=== PATIENT | male | born 1950 | race Caucasian/White ===

== ENCOUNTER 2016-09-09 13:08 | Observation (INO) | payer OTHER, MEDICARE ==
[~2016-09-09] VITALS: Ht 185.4 cm; Wt 109.6 kg
[2016-09-09 13:21] VITALS: BP 173/93; PULSE 80; RESP 18; O2SAT 98
[2016-09-09] MEDS ORDERED: FLUT16SP NASAL (13:28)
[2016-09-09] MEDS ORDERED: LISI-567 PO (13:28)
[2016-09-09] MEDS ORDERED: ALLO300T2 PO (13:28)
[2016-09-09] MEDS ORDERED: ATOR80TA77 PO (13:28)
--- NOTE | 2016-09-09 14:34 | ED.REPORT ---
HPI-Neurologic Deficit Date of Service Sep 09, 2016 ED Provider: Sapphire Sandoval MD 66 y/o male with a hx of HTN, hyperlipidemia and asthma presents to the ED via EMS complaining of sudden occipital headache that woke him up at 03:30 this morning. This concerned the pt as he never gets headaches. The pt took his BP and recorded it as 152/100 and later at 180/96. He took Naprosyn, without any relief. He called the EMS after he began experiencing numbness on the left side of his face and in the left arm. He states my hand was functioning but I couldnt feel it. His sx resolved on his way to the ED. His headache went down from 8/10 in severity to 4/10. He denies nausea, vomiting, neck stiffness , chest pain, vision problems, speech problems and facial droop. Nursing Notes Stated Complaint: NEURO SYMPTOMS Chief Complaint: Neuro Symptoms/ Deficits Nursing Notes Reviewed: Yes Allergies: Uncoded Allergies: NKMA (Allergy, Mild, 07/24/03) Scheduled Allopurinol (Allopurinol) 300 Mg Tablet 300 MG PO DAILY Atorvastatin Calcium (Atorvastatin Calcium) 80 Mg Tablet 80 MG PO HS Lisinopril (Lisinopril) 20 Mg Tablet 20 MG PO DAILY Scheduled PRN Fluticasone Propionate (Fluticasone Propionate Nasal) 16 Gm [place].susp 1 SPRAY NASAL prn PRN PRN congstion General Time Seen by Provider: 13:27 Chief Complaint Sudden onset headache Hx Obtained From: Patient Arrived By: Ambulance Sudden in Onset?: Yes Onset Occurred: 9 - 12 hours ago Symptom Duration: 1 - 4 hours Progression Since Onset: Gradually improving Location: : Head Quality: Painful Radiation: : Does not radiate Severity: Current: Pain level 4 out of 10 Severity: Maximum: Pain level 8 out of 10 Recent Healthcare: No recent doctor visit Similar Sx Previous: No Risk Factors NIH Stroke Scale Level of Consciousness: Alert and responsive (0) Ask Month & Age: Both questions right (0) Open/Close Eyes/Hand Butt Maker: Performs both tasks (0) Horizontal EO Movements: None (0) Visual Harman: No visual loss (0) Facial Palsy: Normal symmetry (0) Right Arm Motor Drift (10s): No drift 10 sec (0) Left Arm Motor Drift (10s): No drift 10 sec (0) Right Leg Motor Drift (5s): No drift 5 sec (0) Left Leg Motor Drift (5s): No drift 5 sec (0) Limb Ataxia FNF/Heel-Macdonald: No ataxia (0) Sensation (Arms/Legs/Face): No sensory loss (0) Language Aphasia: No aphasia, normal (0) Dysarthria: No dysarthria, normal (0) Extinction/Inattention: No exctinct/inattent (0) NIHSS Score: 0 Time NIHSS Performed: 13:30 Date NIHSS Performed: Sep 09, 2016 Past Medical History Past Medical History Reports: Asthma, Hyperlipidemia, Hypertension Past Surgical History none reported Smoking History Unknown if Ever Smoker Social History Retired nurse practitioner Ambulatory Status Independent Review of Systems Reports: hypertension Denies: facial droop Cardiovascular: Denies: Chest pain GI: Denies: Nausea, Vomiting Musculoskeletal: Denies: Neck pain (neck stiffness) Neurologic: Reports: Headache, Numbness (left side of the face and left arm, now resolved), Denies: Unable to speak, Vision change Complete sys rev & neg: except as marked. Physical Exam Initial Vital Signs Vital Signs (First) Date Time Temp Pulse Resp B/P Pulse Ox O2 Delivery O2 Flow Rate FiO2 09/09/16 13:21 36.7 80 18 173/93 98 Room Air Initial VS: Reviewed Neck: Supple, Non-tender, Full range of motion Extremities: Vascular intact, Neuro intact, No swelling, No tenderness Skin: Warm, Dry, No cyanosis General/Constitutional: Awake, Alert, No acute distress, Well appearing, Cooperative Head / Eyes: Atraumatic, Normocephalic, PERRL, EOMI Respiratory / Chest: Atraumatic, Breath sounds NL, Breath sounds = bilat, No respiratory distress, No rales, No rhonchi, No wheezing Cardiovascular: Heart rate NL, Regular rhythm, Heart sounds NL, No gallop, No murmurs, No rubs Neurologic: Oriented X3, Speech NL, No motor deficits, No sensory deficits, CN II - XII intact Interpretation & Diagnostics Lab Results Interpretation Result Diagram: 09/09/16 1338 09/09/16 1338 Test 09/09/16 13:38 White Blood Count 7.3th/mm3 (3.8-10.1) Red Blood Count 4.73mil/mm3 (4.40-5.80) Hemoglobin 15.9g/dL (13.8-17.2) Hematocrit 45.7% (41.0-50.0) Mean Corpuscular Volume 96.6fL (81-100) Mean Corpuscular Hemoglobin 33.6pg (27.0-35.0) Mean Corpuscular Hemoglobin Concent 34.8% (32.0-37.0) Red Cell Distribution Width 13.5% (12.3-15.4) Platelet Count 209bil/L (150-400) Neutrophils (%) (Auto) 52.5% (40-74) Lymphocytes (%) (Auto) 33.2% (14-46) Monocytes (%) (Auto) 10.7% (4-12) Eosinophils (%) (Auto) 3.2% (0-5) Basophils (%) (Auto) 0.3% (0-3) Hold Purple Top Tube Received (Received) Prothrombin Time 10.1sec (8.1-12.5) Prothromb Time International Ratio 0.95ratio Activated Partial Thromboplast Time 25.6sec (22.8-33.0) Hold Blue Top Tube Received (Received) Sodium Level 136mEq/L (134-144) Potassium Level 4.3mEq/L (3.5-5.2) Chloride Level 97mEq/L (97-108) Carbon Dioxide Level 22mmol/L (18-29) Blood Urea Nitrogen 20mg/dL (8-27) Creatinine 0.78mg/dL (0.76-1.27) Estimat Glomerular Filtration Rate 106mL/min (>59) Glucose Level 103mg/dL (60-99) Calcium Level 9.2mg/dL (8.5-10.1) Total Bilirubin 0.7mg/dL (0.0-1.2) Aspartate Amino Transf (AST/SGOT) 35U/L (0-50) Alanine Aminotransferase (ALT/SGPT) 37U/L (0-44) Alkaline Phosphatase 62U/L (25-160) Troponin T < 0.010ug/L (0.0-0.011) Total Protein 7.4g/dL (6.4-8.4) Albumin 4.4g/dL (3.4-5.0) Hold [place] Top Tube Received (Received) CT Head Interpretation IMPRESSION: 1. No acute intracranial abnormalities. 2. Cerebral volume loss and chronic microvascular ischemic changes. Dictated by: Nuno Palomo M.D. on 09/09/2016 at 14:27 Approved by: Nuno Palomo M.D. on 09/09/2016 at 14:33 Study: Head CT no contrast Interpretation / Wet Read by: Interpret - Radiologist Re-Eval/Medical Decision Med Decision/Clinical Course Patient's symptoms are in a vascular territory and typical of possible TIA, they have completely resolved by the time of his emergency department evaluation. He was administered an aspirin, and admitted to the hospital for further workup including telemetry, echocardiogram. Re-Evaluation/Progress : Time of Eval: 13:33 Re-Evaluation/Progress Note: Discussed diagnosis and plan to admit. Pt understands and agrees with the plan for admission. All questions addressed. Consultation : Referral / Consult Name: Rico Mauricio MD Consulted With: Hospitalist Call Returned at: 15:30 Quarry Supervisor Dimension Stone: Will see patient, Agrees with eval, Agrees with plan, Accepts admit Counseled Regarding: Diagnosis, Lab results, Need for admission Discharge & Departure Impression: Primary Impression: TIA (transient ischemic attack) Transient cerebral ischemia type: unspecified Qualified Code: G45.9 - Transient cerebral ischemic attack, unspecified Disposition: ADMITTED TO HOSPITAL Discharge Condition All VS Reviewed: Yes Referrals: Aubree Guillaume (PCP) Sharmila Attestation Portions of this note were transcribed by Ravinder Angel. I,, personally performed the history, physical exam and medical decision-making;I reviewed and confirmed the accuracy of the information in the transcribed note. Signed by Sharmila Balderrama. 09/09/16 17:38 copies to: Aubree Guillaume Sarah C MD Sep 09, 2016 14:34 Ravinder Angel Sep 09, 2016 15:06
--- NOTE | 2016-09-09 14:36 | DRSVH ---
PROCEDURE: CT BRAIN WITHOUT CONTRAST ([id number]) INDICATIONS: facial numbness TECHNIQUE: Noncontrast 4.5 mm thick angled axial sections acquired from the foramen magnum to the vertex, with c oronal reformats. COMPARISON: None. FINDINGS: Image quality: Excellent. CSF spaces: Basal cisterns are patent. No extra-axial fluid collections. The ventricles are symmet nicole in size and shape. Brain: No intracranial bleeds or masses. There is mild cerebral volume loss for age, with resultant ventricular and sulcal prominence. There are mild periventricular and deep white matter chronic sma ll vessel ischemic changes. There is intracranial internal carotid artery atherosclerosis. Skull and face: Calvarium and visualized facial bones appear intact, without suspicious lesions. Sinuses: Visualized sinuses and mastoids are clear. IMPRESSION: 1. No acute intracranial abnormalities. 2. Cerebral volume loss and chronic microvascular ischemic changes. Dictated by: Nuno Palomo M.D. on 09/09/2016 at 14:27 Approved by: Nuno Palomo M.D. on 09/09/2016 at 14:33
[2016-09-09 15:03] LABS: BASOPHILS % (AUTO) 0.3 % (0-3); EOSINOPHILS % (AUTO) 3.2 % (0-5); MONOCYTES % (AUTO) 10.7 % (4-12); Mean Corpuscular Hemoglobin 33.6 pg (27.0-35.0); Mean Corpuscular Volume 96.6 fL (81-100); NEUTROPHILS % (AUTO) 52.5 % (40-74); Platelet Count 209 bil/L (150-400)
[2016-09-09 15:09] LABS: INR 0.95 ratio
[2016-09-09 15:22] LABS: TROPONIN T < 0.010 ug/L (0.0-0.011)
[2016-09-09 15:30] VITALS: BP 175/96; PULSE 84; RESP 20; O2SAT 96
--- NOTE | 2016-09-09 15:45 | DRSVH ---
PROCEDURE: X-RAY CHEST ONE VIEW, PORTABLE ([id number]) INDICATIONS: TIA TECHNIQUE: One view of the chest was acquired. COMPARISON: None. FINDINGS: Surgical changes and devices: None. Lungs and pleura: No pleural effusions or pneumothorax. Lungs are clear. Mediastinum: Mediastinal contours appear normal. Heart size is normal. Bones and chest wall: No suspicious bony lesions. Overlying soft tissues appear unremarkable. IMPRESSION: No radiographic evidence of acute cardiopulmonary pathology. Dictated by: Jhoan Olsen M.D. on 09/09/2016 at 15:42 Approved by: Jhoan Olsen M.D. on 09/09/2016 at 15:42
[2016-09-09] MEDS ORDERED: Alum-Mag Hydrox-Simeth 30 mL Suspension PO PRN (16:30)
[2016-09-09] MEDS ORDERED: Polyethylene Glycol (PEG) 17 Gm Powder PO PRN (16:30)
[2016-09-09] MEDS ORDERED: Ondansetron 2 mg/mL 2 mL Inj IVPUSH PRN (16:30)
[2016-09-09] MEDS ORDERED: Fluticasone 0.05% 15 Spray/2 Gm 16 Gm Nasal Spray NASAL PRN (16:30)
--- NOTE | 2016-09-09 16:43 | PCM.HPMED ---
Subjective Date of Service Sep 09, 2016 Primary Provider: Admitting Physician: Rico Mauricio MD Primary Care Physician: Aubree Guillaume Attending Physician: Rico Mauricio MD History of Present Illness: As taken from patient, ER notes: 66 y/o male with a hx of HTN, hyperlipidemia and asthma presents to the ED via EMS complaining of sudden occipital headache that woke him up at 03:30 this morning. This concerned the pt as he never gets headaches. The pt took his BP and recorded it as 152/100 and later at 180/96. He took Naprosyn, without any relief. He called the EMS after he began experiencing numbness on the left side of his face and in the left arm. He states my hand was functioning but I couldnt feel it. His sx resolved on his way to the ED. His headache went down from 8/10 in severity to 4/10. He denies nausea, vomiting, neck stiffness, chest pain, vision problems, speech problems and facial droop. Patient added that he went for a physical to his PCP a month ago , and at that time his bp was ok. He usually checks blood pressure at home regularly, and its usually around 140s/80s. 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 He does complain of low grade fever since last 3-4 weeks. Allergies Uncoded Allergies: NKMA (Allergy, Mild, 07/24/03) Constitutional: No: Chills, Fever, Malaise, Other, Sweats, Weakness Eyes: Denies: Blurred Vision, Conjunctive Inflammation, Double Vision, Eyelid Inflammation, Other, Pain, Pigmentosa, Redness, Retinitis, Vision Changes Cardiovascular: Denies: Chest Pain, Edema, Lt Headedness, Orthopnea, Other, Palpitations, Paroxysmal Noc. Dyspnea Gastrointestinal: Denies: Abdominal Pain, Change in Appetite, Constipation, Diarrhea, Heartburn, Hematochezia, Melena, Nausea, Other, Use of Laxatives, Vomiting Genitourinary: Denies: Anuria, Change in Frequency, Dysuria, Hematuria, Incontinence, Nocturia, Other, Retention Musculoskeletal: Denies: Back Pain, Deformity, Limitation of Function, Neck Pain, Other, Redness, Shoulder Pain, Swelling Skin: Denies: Bruising, Dry or Flakiness, Jaundice, Lesions, Other, Rash, Scars , Ulcers Neurological: Reports: Other (as per HPI) Psychologic: Denies: Agitation, Disorientation, Excitation, Giddiness, Hostile , Insomnia, Instability, Brigida, Nervousness, Night Terrors, Other, Perseveration , Phobia, Sexual Disturbances Endocrine: Denies: Change in Appitite, Diaphoresis, Intolerent to Heat/Cold, Polydipsea, Polyuria PMH HTN Hyperlipidemia Seasonal Asthma Surgical History None Family History Father : Alzheimer's, Afib, prostate cancer Mother : Strokes Social History Hx Alcohol Use: Yes (daily 2-4 ) Alcoholic Drinks Per Day: socially Hx Substance Use: No Hx Tobacco Use: No Smoking Status: Unknown if Ever Smoker Exam Vital Signs Vital Sign - Last Date Time Temp Pulse Resp B/P Pulse Ox O2 Delivery O2 Flow Rate FiO2 09/09/16 15:30 36.2 84 20 175/96 96 Room Air Exam Neck: Supple, Non-tender, Full range of motion Extremities: Vascular intact, Neuro intact, No swelling, No tenderness Skin: Warm, Dry, No cyanosis General/Constitutional: Awake, Alert, No acute distress, Well appearing, Cooperative Head / Eyes: Atraumatic, Normocephalic, PERRL, EOMI Respiratory / Chest: Atraumatic, Breath sounds NL, Breath sounds = bilat, No respiratory distress, No rales, No rhonchi, No wheezing Cardiovascular: Heart rate NL, Regular rhythm, Heart sounds NL, No gallop, No murmurs, No rubs Neurologic: Oriented X3, Speech NL, No motor deficits, No sensory deficits, CN II - XII intact Lab and Diagnostics Result Diagram: 09/09/16 1338 09/09/16 1338 X-Rays, CTs and MRIs Head CT MPRESSION: 1. No acute intracranial abnormalities. 2. Cerebral volume loss and chronic microvascular ischemic changes. Assessment & Plan 66 yo male with pmh of HTN, Hyperlipidemia and seasonal asthma, being admitted for sudden onset of headache, and concerns for TIA. > TIA, at home, working up the cause - CT negative for any acute intracranial processes - MRI , Echo , Carotid dopplers pending - Tele monitoring - patient got Aspirin in ER , on anti cholestrol medication at home - BP - 175/96 in ER, permissive bp - labetalol prn if bp > 180/100 - lipid panel, Hba1c - Swallow eval > HTN - BP high in ER, however considering no signs of Intracranial bleed, permissive bp for now - labetolol prin if bp > 180/100 - will continue lisinopril > Hyperlipidemia - continue home med > Seasonal asthma - asymptomatic at this point DVT prophylaxis : SCDs FEN: Cardiac diet once bedside swallow eval done Dispo: Patient will be admitted for observation, los likely <2 days. Resuscitation Status: CPR: Attempt Resuscitation Time spent 45 mins Rico Mauricio MD Sep 09, 2016 16:34
[2016-09-09] MEDS ORDERED: Butalbital-Acet-Caffeine Tablet PO PRN (16:50)
--- NOTE | 2016-09-09 16:51 | NUR ---
Evaluation completed. Please go to "Notes" then click on "Assessments and Notes" (bottom left corner of screen). Then select appropriate discipline tab on top of screen.
[2016-09-09 17:20] VITALS: BP 150/82; PULSE 83; RESP 19; O2SAT 98
[2016-09-09 17:43] VITALS: PULSE 100
--- NOTE | 2016-09-09 18:32 | NUR ---
Admit Pt admitted to [facility] room 1016 for observation for TIA. Pt transferred from ED by alpesh, transferred independently into room bed. Pt is alert oriented, ARMSTRONG, with strong steady gait. Cooperating with all cares. Pt placed on telemetry, lunchroom monitor notified.
[2016-09-09 20:50] VITALS: BP 149/87; PULSE 85; RESP 18; O2SAT 97
[2016-09-10 01:05] VITALS: BP 131/86; PULSE 75; RESP 16; O2SAT 98
--- NOTE | 2016-09-10 02:44 | NUR ---
Activity Patient denies pain at this time. No lingering deficit from TIA noted. ambulating independently, sleeping throughout shift. will continue to monitor.
[2016-09-10 05:20] VITALS: BP 169/100; PULSE 83; RESP 18; O2SAT 98
[2016-09-10 05:46] VITALS: PULSE 68
--- NOTE | 2016-09-10 07:55 | PCM.PNMED ---
Subjective Date of Service Sep 10, 2016 Subjective Patient seen and examined today. Complains of mild headache. When asked if would like to take medication for it, denied, said he wants to wait till work up is done and then take something. Vitals stable. Exam Vital Signs Vital Sign - Last Date Time Temp Pulse Resp B/P Pulse Ox O2 Delivery O2 Flow Rate FiO2 09/10/16 05:46 68 09/10/16 05:20 36.8 18 169/100 98 Room Air Intake and Output 09/09/16 09/09/16 09/10/16 Cumulative From/Thru 15:00 23:00 07:00 09/09/16 13:21 - 09/10/16 06:00 Intake Total 0 ml 0 ml Output Total 0 ml 0 ml Balance 0 ml 0 ml Intake Oral 0 ml 0 ml Output Urine Total 0 ml 0 ml # Bowel Movements 0 0 Exam Extremities: Vascular intact, Neuro intact, No swelling, No tenderness Skin: Warm, Dry, No cyanosis General/Constitutional: Awake, Alert, No acute distress, Well appearing, Cooperative Head / Eyes: Atraumatic, Normocephalic, PERRL, EOMI Respiratory / Chest: Atraumatic, Breath sounds NL, Breath sounds = bilat, No respiratory distress, No rales, No rhonchi, No wheezing Cardiovascular: Heart rate NL, Regular rhythm, Heart sounds NL, No gallop, No murmurs, No rubs Neurologic: Oriented X3, Speech NL, No motor deficits, No sensory deficits, CN II - XII intact Lab and Diagnostics Result Diagram: 09/09/16 1338 09/09/16 1338 X-Rays, CTs and MRIs Head CT MPRESSION: 1. No acute intracranial abnormalities. 2. Cerebral volume loss and chronic microvascular ischemic changes. Assessment & Plan 66 yo male with pmh of HTN, Hyperlipidemia and seasonal asthma, being admitted for sudden onset of headache, and concerns for TIA. > TIA, at home, working up the cause - CT negative for any acute intracranial processes - MRI , Echo , Carotid dopplers pending - Tele monitoring - patient got Aspirin in ER , on anti cholestrol medication at home - BP - 175/96 in ER, permissive bp - labetalol prn if bp > 180/100 - lipid panel - TGL and cholestrol levels noted high , Hba1c - normal - Swallow eval > HTN - BP high in ER, however considering no signs of Intracranial bleed, permissive bp for now - labetolol prin if bp > 180/100 - will continue lisinopril > Hyperlipidemia - continue home med > Seasonal asthma - asymptomatic at this point DVT prophylaxis : SCDs FEN: Cardiac diet once bedside swallow eval done Dispo: Patient will be admitted for observation, los likely <2 days. VTE Prophylaxis: SCDs Resuscitation Status: CPR: Attempt Resuscitation Time spent 35 mins Rico Mauricio MD Sep 10, 2016 07:55
[2016-09-10 08:07] VITALS: BP 148/96; PULSE 72; RESP 16; O2SAT 97
--- NOTE | 2016-09-10 09:54 | DRSVH ---
PROCEDURE: US BILATERAL DUPLEX DOPPLER IMAGING OF THE CAROTIDS ([id number]) INDICATIONS: TIA TECHNIQUE: Color and pulse Doppler interrogation was performed of both carotid systems, with image documentation and velocity measurements. COMPARISON: None. FINDINGS: All stenosis calculations are based on NASCET criteria. Right side: Brachial blood pressure: 149/97 mm Hg. Common Carotid Artery(Distal) PSV: 71.10 cm/s Internal Carotid Artery PSV- Proximal: 59 cm/s, 66.20 cm/s Mid-lon.40 cm/s Distal: 103.30 cm/s EDV - Proximal: 13.30 cm/s, 16.20 cm/s Mid-lon.70 cm/s Distal: 36 cm/s External Carotid Artery(Proximal) PSV: 70 cm/s ICA/CCA PSV ratio: 1.45 Mann scale imaging description: Calcified plaques at the bifurcation Percent internal carotid artery stenosis: Less than 50%. Vertebral artery: Flow direction is antegrade. Left side: Brachial blood pressure: 160/100 mm Hg. Common Carotid Artery(Distal) PSV: 76.60 cm/s Internal Carotid Artery PSV - Proximal: 40.80 cm/s Mid-lon.90 cm/s Distal: 88.40 cm/s EDV - Proximal: 7.20 cm/s Mid-lon.50 cm/s Distal: 32.40 cm/s External Carotid Artery(Proximal) PSV: 82.30 cm/s ICA/CCA PSV ratio: 1.15 Mann scale imaging description: Calcified plaques at the bifurcation Percent internal carotid artery stenosis: Less than 50%. Vertebral artery: Flow direction is antegrade. IMPRESSION: 1. Less than 50% internal carotid artery stenosis bilaterally. 2. Antegrade vertebral flow bilaterally. Dictated by: Nuno Palomo M.D. on 09/10/2016 at 9:50 Approved by: Nuno Palomo M.D. on 09/10/2016 at 9:52
--- NOTE | 2016-09-10 11:08 | NUR ---
Social Work: Initial Assessment/Readiness for Discharge/Multi-Disciplinary Rounds D: EMR reviewed. Please see initial assessment for more information. Pt is a 66 y/o male admitted [facility] for TIA per H&P. Pt has a low re-admit risk score of 1. MONICA met with pt at bedside to conduct initial assessment. Pt was alert and oriented x3. SW explained role and wrote phone number on white board. SW provided "Your Discharge Planning Checklist" and encouraged pt to review and call SW for any questions that may arise. Pt's insurance is Medicare and [place] [employer]. PCP is MARGE Walls. Pt has completed DPOA/advanced directive ppw and SW encouraged pt to provide a copy to the hospital. Pt stated he will transport himself home today via POV. Per rounds, pt is to receive Echocardiogram today and is likely to discharge pending results. Pt lives at home alone in [place] where he is independent with all ADLs and does not own or use any DME. MD does not anticipate any discharge needs. SW assessed pt's self-capacity for care - no concerns identified. A: Pt who is independent at baseline. P: Pt anticipated to discharge home today via POV - no discharge needs identified by MONICA or MD/RN in rounds. Pt requested SW to fax any rx to [facility] for pick-up. MONICA will consult with MD regarding medications and fax to [facility]. SW will continue to follow for needs that may arise. SADIE Austin Addendum: 09/10/16 at 1117 by FATIMAH SMITH Amended: Links added. Addendum: 09/10/16 at 1127 by FATIMAH SMITH PLEASE DISREGARUD ASSESSMENT - ENTERED ON WRONG PATIENT. Addendum: 09/10/16 at 1128 by FATIMAH SMITH DISREGARD PREVIOUS AMENDED NOTE - THIS IS THE CORRECT ASSESSMENT ENTERED ON THE CORRECT PATIENT
[2016-09-10 11:30] VITALS: PULSE 82
[2016-09-10 12:18] VITALS: BP 134/80; PULSE 81; RESP 18; O2SAT 98
--- NOTE | 2016-09-10 13:04 | DRSVH ---
[facility] [address] [place] [address] Echocardiogram Report Name: TABITHA LLAMAS RStudy Date: 09/10/2016 Height: 73 in Hospital Exam Location: [facility] Weight: 242 lb Gender: Male BSA: 2.3 m2 : 1950 Age: 66 yrs BP: 148/96 mmHg Reason For Study: TIA Ordering Physician: HOSPITALIST [facility] Performed By: Mariah Fitzgerald Referring Physician: HOSPITALIST [facility] Interpretation Summary [place] Team. Left ventricular systolic function is normal. The ejection fraction is estimated to be 60-65%. Injection of contrast documented no interatrial shunt. There is no significant valvular heart disease. Procedure: A two-dimensional transthoracic echocardiogram with color flow and Doppler was performed. The study quality was technically good. There is no prior echocardiogram noted for this patient. The patient was in normal sinus rhythm during the exam. Left Ventricle: The left ventricle is normal in size. There is normal left ventricular wall thickness. Trabeculation noted in the LV apex. No obvious cardiac source of embolism. Left ventricular systolic function is normal. The ejection fraction is estimated to be 60-65%. Assessment of diastolic parameters indicates a relaxation abnormality of the left ventricle, consistent with normal filling pressures. Right Ventricle: The right ventricle is mildly dilated. The right ventricular systolic function is normal. Atria: The left atrial size is normal. Right atrial size is normal. The interatrial septum is intact with no evidence for an atrial septal defect. Injection of contrast documented no interatrial shunt. Mitral Valve: The mitral valve leaflets appear mildly thickened, but open well. There is no mitral valve stenosis. There is trace mitral regurgitation. Aortic Valve: There is mild aortic valve sclerosis. There is no aortic valve stenosis. No aortic regurgitation is present. Tricuspid Valve: The tricuspid valve is normal in structure and function. There is trace tricuspid regurgitation. Pulmonary artery pressures cannot be estimated because of the lack of a measurable TR jet velocity. Pulmonic Valve: The pulmonic valve is not well seen, but is grossly normal. There is trace pulmonic regurgitation. Great Vessels: The aortic root is normal size. The ascending aorta is mildly enlarged. The pulmonary artery is normal size. The inferior vena cava was not well visualized. Pericardium/ Pleura There is no pericardial effusion. There is no pleural effusion. MMode/2D Measurements & Calculations LVIDd: 5.1 cm LA dimension: 3.9 cm RA long axis LVOT diam: 2.1 cm LVIDs: 2.5 cm AoV Opening FS: 50.9 % LA A2 area: 20.5 cm RA area EPSS: 1.2 cm LA A4 area: 26.8 cm Ao root diam IVSd: 0.96 cm LA length (vol) : 17.8 cm LVPWd: 1.1 cm RA vol asc Aorta Diam LA vol: 76.3 ml : 51.3 ml LA vol index RA Ao Arch Diam (Prox : 22.0 mm2 Trans): 3.2 cm : 32.7 ml/m2 LV mcclendon. diameter/BSA LV sys. diameter/BSA TAPSE: 2.2 cm (cm/m^2): 2.2 (cm/m^2): 1.1 Doppler Measurements & Calculations Ao V2 max MV E max matthew MV E/A: 0.70 PA V2 max : 181.1 cm/sec : 73.4 cm/sec Med Peak E' Matthew : 98.9 cm/sec Ao max P.1 mmHg MV A max matthew PA mean PG Ao mean P.0 mmHg : 105.1 cm/sec E/E' med: 14.1 : 2.0 mmHg LVOT Max Matthew Lat Peak E' Matthew : 113.6 cm/sec E/E' lat: 7.9 CHARITY(I,D): 2.4 cm E/e' average sev ratio: 0.70 Pulm A Revs Matthew Pulm A Revs Dur MV A dur : 0.13 sec MV dec time: 0.28 secAo V2 mean LV V1 max PG PA V2 mean : 123.3 cm/sec : 65.2 cm/sec Ao V2 VTI: 33.4 cm LV V1 VTI PA pr(Accel) : 23.3 cm : 23.8 mmHg CHARITY(V,D): 2.2 cm2 CHARITY indexed to BSA Pulm A Revs Dur - MV A (cm^2/m^2): 1.0 Dur: -0.03 msec Electronically signed by: Massimo Jean on Reading Physician:09/10/2016 01:03 PM
--- NOTE | 2016-09-10 13:34 | DRSVH ---
PROCEDURE: MRI BRAIN WITHOUT CONTRAST ([id number]) INDICATIONS: TIA symptoms TECHNIQUE: Non-contrast axial T1 spin echo, axial T2 fast spin echo, sagittal and axial FLAIR, coronal T2 fast s pin echo, axial gradient echo, axial diffusion and ADC through the brain. COMPARISON: [facility], CT, CT BRAIN WO CON, 09/09/2016, 14:19. FINDINGS: Image quality: Excellent. CSF spaces: Ventricles appear symmetric in size and shape. Basal cisterns are patent. No extra-axi al fluid collections. Brain: No intracranial bleeds or mass effects. There is mild cerebral volume loss for age. Brainst em appears normal. Diffusion-weighted images show no acute ischemic insults. No chronic ischemic in sults. Normal intravascular flow voids are present. Skull and face: Calvarial bone marrow is normal in signal. Orbits are normal. Sinuses: There is mucosal thickening in the left maxillary sinus, bilateral ethmoid sinuses and right sphenoid sinus. There is a mucus retention cyst in the right sphenoid sinus. The mastoids are clear. IMPRESSION: 1. No acute intracranial abnormalities. 2. Mild cerebral volume loss. 3. Paranasal sinus disease as described. Dictated by: Nuno Palomo M.D. on 09/10/2016 at 13:28 Approved by: Nuno Palomo M.D. on 09/10/2016 at 13:31
--- NOTE | 2016-09-10 13:47 | DRSVH ---
PROCEDURE: MRA ANGIOGRAM HEAD WITHOUT CONTRAST ([id number]) INDICATIONS: TIA TECHNIQUE: Noncontrast axial 3-D [id number] MR angiogram, with 3-dimensional maximum intensity projection (M IP) reformats of the internal carotid arteries and posterior circulation then performed. COMPARISON: [facility], MR, MR BRAIN WO CON, 09/10/2016, 12:41. FINDINGS: Image quality: Excellent. Anterior circulation: Intracranial internal carotid arteries demonstrate normal size and intralumina l flow signal. The flow within the paired anterior cerebral arteries is normal and symmetric. The f low within the middle cerebral arteries is normal and symmetric. The anterior communicating artery i s seen. No stenoses, occlusions, or aneurysms. Posterior circulation: Visualized portions of the vertebral arteries demonstrate normal caliber, and join to form a normal appearing basilar artery. There is severe segmental narrowing of the P1 segme nt of the right posterior cerebral artery. More distally, flow within the posterior cerebral arteries is normal and symmetric. The left posterior communicating artery is not visualized. No occlusions o r aneurysms. IMPRESSION: 1. No significant stenosis or occlusion in anterior circulations. 2. Severe segmental narrowing of the P1 segment of the right posterior cerebral artery. 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 3. Nonvisualization of the left posterior communicating artery. Dictated by: Nuno Palomo M.D. on 09/10/2016 at 13:38 Approved by: Nuno Palomo M.D. on 09/10/2016 at 13:44
--- NOTE | 2016-09-10 16:24 | PCM.DIMED ---
Discharge Instructions Date of Service Sep 10, 2016 Dates of Hospitalization Sep 09, 2016 at 16:14 Discharge Diagnosis Discharge Diagnosis TIA Headache HTN Medication Instructions Additional med instructions Continue lisinopril @ 20 mg daily, check blood pressure daily, if blood pressure persists > 160 systolic, 90 diastolic, increase the dose to 30 mg daily Diet Discharge Diet: Low fat, Low Sodium Activity Discharge Activity: No restrictions Call your provider Call your provider for: Weakness (unilateral) Patient Instructions Follow-up with PCP in: 1 week Rico Mauricio MD Sep 10, 2016 16:24
--- NOTE | 2016-09-10 16:28 | PCM.DC.MED ---
Discharge Summary Date of Service Sep 10, 2016 Dates of Hospitalization Date of Hospital Admission Sep 09, 2016 at 16:14 Date of Discharge: Sep 10, 2016 Providers: Admitting Physician: Rico Mauricio MD Primary Care Physician: Aubree Guillaume Attending Physician: Rico Mauricio MD Diagnosis at Time of Discharge Diagnosis at Time of Discharge TIA Headache HTN Procedures XRay, CTs & MRIs Head CT MPRESSION: 1. No acute intracranial abnormalities. 2. Cerebral volume loss and chronic microvascular ischemic changes. Echo Interpretation Summary [place] Team. Left ventricular systolic function is normal. The ejection fraction is estimated to be 60-65%. Injection of contrast documented no interatrial shunt. There is no significant valvular heart disease. Carotid Dopplers IMPRESSION: 1. Less than 50% internal carotid artery stenosis bilaterally. 2. Antegrade vertebral flow bilaterally. Head MRA IMPRESSION: 1. No significant stenosis or occlusion in anterior circulations. 2. Severe segmental narrowing of the P1 segment of the right posterior cerebral artery. 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 3. Nonvisualization of the left posterior communicating artery. MRI IMPRESSION: 1. No acute intracranial abnormalities. 2. Mild cerebral volume loss. 3. Paranasal sinus disease as described. Brief History As taken from patient, ER notes: 66 y/o male with a hx of HTN, hyperlipidemia and asthma presents to the ED via EMS complaining of sudden occipital headache that woke him up at 03:30 this morning. This concerned the pt as he never gets headaches. The pt took his BP and recorded it as 152/100 and later at 180/96. He took Naprosyn, without any relief. He called the EMS after he began experiencing numbness on the left side of his face and in the left arm. He states my hand was functioning but I couldnt feel it. His sx resolved on his way to the ED. His headache went down from 8/10 in severity to 4/10. He denies nausea, vomiting, neck stiffness, chest pain, vision problems, speech problems and facial droop. Patient added that he went for a physical to his PCP a month ago , and at that time his bp was ok. He usually checks blood pressure at home regularly, and its usually around 140s/80s. 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 He does complain of low grade fever since last 3-4 weeks. Hospital Course 66 yo male with pmh of HTN, Hyperlipidemia and seasonal asthma, being admitted for sudden onset of headache, and concerns for TIA. > TIA, at home, working up the cause - CT negative for any acute intracranial processes - MRI , Echo , Carotid dopplers results as above, no acute changes observed - patient got Aspirin in ER , on anti cholestrol medication at home - BP - 175/96 in ER, permissive bp - lipid panel - TGL and cholestrol levels noted high , Hba1c - normal , patient given option for fenofibrate, however he wants to discuss with his pcp before starting it > HTN - BP high in ER, however considering no signs of Intracranial bleed, permissive bp for now - will continue lisinopril - follow up with pcp for further management > Hyperlipidemia - continue home med > Seasonal asthma - asymptomatic at this point Dispo : home Exam Vital Signs (Last) Date Time Temp Pulse Resp B/P Pulse Ox O2 Delivery O2 Flow Rate FiO2 09/10/16 12:18 36.5 81 18 134/80 98 Room Air Test 09/09/16 13:38 09/10/16 06:11 White Blood Count 7.3th/mm3 (3.8-10.1) Red Blood Count 4.73mil/mm3 (4.40-5.80) Hemoglobin 15.9g/dL (13.8-17.2) Hematocrit 45.7% (41.0-50.0) Mean Corpuscular Volume 96.6fL (81-100) Mean Corpuscular Hemoglobin 33.6pg (27.0-35.0) Mean Corpuscular Hemoglobin Concent 34.8% (32.0-37.0) Red Cell Distribution Width 13.5% (12.3-15.4) Platelet Count 209bil/L (150-400) Neutrophils (%) (Auto) 52.5% (40-74) Lymphocytes (%) (Auto) 33.2% (14-46) Monocytes (%) (Auto) 10.7% (4-12) Eosinophils (%) (Auto) 3.2% (0-5) Basophils (%) (Auto) 0.3% (0-3) Hold Purple Top Tube Received (Received) Prothrombin Time 10.1sec (8.1-12.5) Prothromb Time International Ratio 0.95ratio Activated Partial Thromboplast Time 25.6sec (22.8-33.0) Hold Blue Top Tube Received (Received) Sodium Level 136mEq/L (134-144) Potassium Level 4.3mEq/L (3.5-5.2) Chloride Level 97mEq/L (97-108) Carbon Dioxide Level 22mmol/L (18-29) Blood Urea Nitrogen 20mg/dL (8-27) Creatinine 0.78mg/dL (0.76-1.27) Estimat Glomerular Filtration Rate 106mL/min (>59) Glucose Level 103mg/dL (60-99) Hemoglobin A1c 5.5% (4.8-5.6) Calcium Level 9.2mg/dL (8.5-10.1) Total Bilirubin 0.7mg/dL (0.0-1.2) Aspartate Amino Transf (AST/SGOT) 35U/L (0-50) Alanine Aminotransferase (ALT/SGPT) 37U/L (0-44) Alkaline Phosphatase 62U/L (25-160) Troponin T < 0.010ug/L (0.0-0.011) Total Protein 7.4g/dL (6.4-8.4) Albumin 4.4g/dL (3.4-5.0) Hold [place] Top Tube Received (Received) Triglycerides Level 546mg/dL (0-149) Cholesterol Level 208mg/dL (100-199) LDL Cholesterol, Calculated 63.800mg/dL (0-99) VLDL Cholesterol 109.200mg/dL HDL Cholesterol 35mg/dL (>39) Cholesterol/HDL Ratio 5.94 (0.0-4.4) Discharge Medications Discharge Medications Allopurinol (Allopurinol) 300 Mg Tablet 300 MG PO DAILY (Reported) Atorvastatin Calcium (Atorvastatin Calcium) 80 Mg Tablet 80 MG PO HS (Reported) Lisinopril (Lisinopril) 20 Mg Tablet 20 MG PO DAILY (Reported) As needed Fluticasone Propionate (Fluticasone Propionate Nasal) 16 Gm [place].susp 1 SPRAY NASAL prn PRN PRN congstion (Reported) Additional med instructions Continue lisinopril @ 20 mg daily, check blood pressure daily, if blood pressure persists > 160 systolic, 90 diastolic, increase the dose to 30 mg daily Followup Plan Discharge Diet: Low fat, Low Sodium Discharge Activity: No restrictions Follow-up with PCP in: 1 week Time spent 35 mins Rico Mauricio MD Sep 10, 2016 16:28
--- NOTE | 2016-09-10 19:10 | NUR ---
Discharge Pt discharged to home with a friend at ~1600 today. Pt's IV access had already been D/C'd accidently by Pt. Pt given discharge educational materials on TIA. Pt verbalized that he would f/u with PCP ~1-2 weeks after discharge. Pt verbalized understanding of all discharge instructions. All belongings accompanied Pt at time of discharge.
== END 2016-09-10 16:00 | disposition home or self-care (01) ==
LOC: SED 13:08 → EDUNIT# 13:08 → EDBD 13:08 → OSC 16:14
PROVIDERS: ADMIT Internal Medicine; ATTEND Internal Medicine
DX: G45.9 Transient cerebral ischemic attack, unspecified (principal); R20.0 Anesthesia of skin; I10 Essential (primary) hypertension; R51 Headache; E78.5 Hyperlipidemia, unspecified; J45.909 Unspecified asthma, uncomplicated
CPT/HCPCS: 36415; 70450; 70544; 70551; 71010; 80053; 80061; 83036; 84484; 85025; 85610; 85730; 92610; 93005; 93880; 99285; C8929; G0378